=== PATIENT | female | born 1965 ===

== ENCOUNTER → 2019-07-18 | Outpatient (CLI) | payer OTHER ==
[2019-07-18 13:58] VITALS: BP 149/81; PULSE 84; RESP 16
--- NOTE | 2019-07-20 14:43 | P.PAINCN ---
History of Present Illness - Reason for Consult Consult date: 07/18/19 - History of Present Illness This is a 54-year-old patient referred by Dr. Victor with a chief complaint of chronic pain in right low back with radiation to right lateral thigh and lateral calf as well as bottom of right foot. This pain began in 2010 following an injury at a wellness center, the patient was attempting a new back exercise machine. The following day she woke up with excruciating back pain. Her back pain accounts for 80% of pain complaint, leg pain accounting for 20% of pain. Pain is rated as 6/10 today. She does endorse numbness and tingling in right lateral calf, as well as bilateral feet, which she attributes to diabetic neuropathy. She denies any current motor deficits, however on initial injury she states that she had foot drop which has improved with physical therapy. She has been evaluated by several specialists, she was following with a [facility] at [facility], and underwent 6 epidural steroid injections as well as a spinal cord stimulator implantation in February 2018, this was subsequently removed in April 2019 due to ineffectiveness. She is also been to physical therapy in the past, and continues to do daily exercises. She was most recently evaluated by Dr. Victor, neurosurgery and referred to our clinic for right-sided L5-S1 facet block. His note indicates that she may benefit from a right-sided L5-S1 facetectomy. Patient denies new-onset weakness, bowel/bladder incontinence, or any other signs or symptoms of cauda equina syndrome. There are no signs of acute intoxication, and no indications of medication diversion or overuse. Patient has not had surgery. Patient has had injections previously. Patient has had physical therapy recently. In addition to above, 13-point review of systems is also negative for chest pain, shortness of breath, changes in vision, changes in hearing, new onset weakness, abdominal pain, diarrhea, extreme fatigue, malaise, fever, skin changes, homicidal or suicidal ideation, or bowel or bladder incontinence. She does endorse night sweats and occasional palpitations. Physical exam: Vital Signs: Reviewed in EMR GENERAL: Well appearing, in no acute distress PSYCH: Mood and affect is appropriate. Awake, alert, and oriented SKIN: Skin color, texture, turgor normal, no rashes or lesions HEENT: Normocephalic, atraumatic. EOM intact CV: No pedal edema RESP: Respirations are unlabored, no audible wheezing GI: Abdomen non-distended MUSCULOSKELETAL: Bilateral lower extremity strength is normal and symmetric, except for right EHLslightly weaker than left side. No atrophy or tone a bnormalities are noted. Lumbar spine: Straight leg raising in the sitting position is negative for radicular pain. Tenderness to palpation over the lumbar spine and paraspinous muscles, more on the right. Positive for pain with facet loading and back extension/rotation, on the right side. Buttocks: No pain to palpation over the PSIS, Trevor test is negative Extremities: Peripheral joint ROM is full and pain free without obvious instability or laxity in all four extremities. No edema or skin discolorations noted. Gait: Gait is normal NEUR: Bilateral lower extremity coordination and muscle stretch reflexes are physiologic and symmetric. Negative clonus. Reduced sensation to light touch in right lateral calf and bilateral feet. Cranial nerves are grossly intact. Imaging: MRI lumbar spine done at [facility] on 05/17/2019 shows right paracentral disc bulging with close approximation to right exiting S1 nerve root with sclerotic facets at this level Bilateral lower extremity EMG done on 06/07/2019 shows low-grade right L5 nerve root irritation and mild distal sensory neuropathy Assessment: 1. Lumbar degenerative disc disease 2. Lumbar radiculopathy 3. Lumbar spondylosis Plan: 1. Explanation: Diagnoses, prognoses, and multiple treatment options including but not limited to physical therapy, interventional therapies, medication management and surgery were discussed with the patient and all questions were answered to the patient's satisfaction. 2. Investigations: Imaging reviewed 3. Counseling: The patient was counseled on the importance of continued EXERC ISE. 4. Procedures: As requested by Dr. Victor, we will schedule right L5-S1 intra- articular facet steroid injection 5. Consultations: None 6. Medications: No changes 7. Disposition: For above-mentioned procedure Past Medical History Past Medical History: Asthma, Diabetes Mellitus, Hyperlipidemia, Musculoskeletal Disorder, Osteoarthritis (OA), Thyroid Disorder Additional Past Medical History / Comment(s): injury to back 2010-injury to L4 & L5-originally developed dropfoot but did resolve History of Any Multi-Drug Resistant Organisms: None Reported Past Surgical History: Bladder Surgery, Section, Cholecystectomy, Orthopedic Surgery Additional Past Surgical History / Comment(s): bladder suspension, arthroscopy left knee, epidural pain procedures 2010 & 2014, spinal stimulator in back & then removed 2018 Past Anesthesia/Blood Transfusion Reactions: Previous Problems w/ Anesthesia Additional Past Anesthesia/Blood Transfusion Reaction / Comm: spinal headache in past after a surg. Smoking Status: Never smoker Medications and Allergies Home Medications Medication Instructions Recorded Confirmed Type Atorvastatin [Lipitor] 10 mg PO DAILY 07/14/19 07/14/19 History Docusate [Colace] 100 mg PO DAILY 07/14/19 07/14/19 History Fexofenadine HCl [Tory Allergy] 180 mg PO DAILY 07/14/19 07/14/19 History Gabapentin [Neurontin] 1,200 mg PO BID 07/14/19 07/14/19 History Glimepiride [Amaryl] 4 mg PO BID 07/14/19 07/14/19 History Glucosam/Anthony-Msm1/C/Pan/Bosw 2 each PO DAILY 07/14/19 07/14/19 History [Glucosamine-Chondroitin Tablet] Ibuprofen [Motrin] 800 mg PO TID 07/14/19 07/14/19 History Insulin Glargine [Lantus] 35 unit SQ HS 07/14/19 07/14/19 History Insulin Glargine [Lantus] 45 unit SQ QAM 07/14/19 07/14/19 History Levothyroxine Sodium [Levoxyl] 175 mcg PO DAILY 07/14/19 07/14/19 History Lisinopril [Zestril] 5 mg PO DAILY 07/14/19 07/14/19 History Montelukast [Singulair] 10 mg PO DAILY 07/14/19 07/14/19 History metFORMIN HCL [Glucophage] 1,000 mg PO BID 07/14/19 07/14/19 History traMADol HCL [Ultram] 100 mg PO TID 07/14/19 07/14/19 History Allergies Allergy/AdvReac Type Severity Reaction Status Date / Time amoxicillin Allergy Rash/Hives Verified 07/14/19 11:25 PQRS Measure Charge Sheet Measure #130: Documentation of Current Meds in Medical Chart: Patient's medications documented in chart Measure #226: Tobacco Use: Screen & Cessation Intervention: Pt not a tobacco user Measure #111: Pneumonia Vaccination: Pneumococcal vaccine NOT administered or previously given Measure #47: Advance Care Plan: Advance care planning discussed & documented, pt chose/unable to give Measure #412: Opioid Treatment Agreement: No documentation of signed opioid treatment agreement Measure #408: Opioid Therapy Follow-up Evaluation: Patient had NO f/u eval minimum every 3 months during opioid therapy Measure #317: Preventitive Care & Scrn High Bld Press & F/U: Pre-hypertensive or hypertensive BP documented, pt will f/u with PCP Measure #128: Body Mass Index (BMI) Screening & Follow-up: BMI documented ABOVE normal parameters - f/u documented Measure #131: Pain Assessment & Follow-up: Pain positive & plan documented, Follow-up scheduled Measure #431: Unhealthy Alcohol Use Preventative Care & Scrn: Patient not identified as an unhealthy alcohol user PQRS Narrative: Smoking Status Never smoker Pain Intensity [Right Lower 6 Back] Scale Used Numeric (1 - 10) Hx Alcohol Use (MH) No Home Medications: Ambulatory Orders Atorvastatin [Lipitor] 10 mg PO DAILY 07/14/19 Docusate [Colace] 100 mg PO DAILY 07/14/19 Fexofenadine HCl [Tory Allergy] 180 mg PO DAILY 07/14/19 Gabapentin [Neurontin] 1,200 mg PO BID 07/14/19 Glimepiride [Amaryl] 4 mg PO BID 07/14/19 Glucosam/Anthoyn-Msm1/C/Pan/Bosw [Glucosamine-Chondroitin Tablet] 2 each PO DAILY 07/14/19 Ibuprofen [Motrin] 800 mg PO TID 07/14/19 Insulin Glargine [Lantus] 35 unit SQ HS 07/14/19 Insulin Glargine [Lantus] 45 unit SQ QAM 07/14/19 Levothyroxine Sodium [Levoxyl] 175 mcg PO DAILY 07/14/19 Lisinopril [Zestril] 5 mg PO DAILY 07/14/19 Montelukast [Singulair] 10 mg PO DAILY 07/14/19 metFORMIN HCL [Glucophage] 1,000 mg PO BID 07/14/19 traMADol HCL [Ultram] 100 mg PO TID 07/14/19
== END | disposition home or self-care (01) ==
LOC: PNWHC3 12:55
PROVIDERS: ATTEND Anesthesiology
DX: M51.16 Intervertebral disc disorders with radiculopathy, lumbar region (principal); M47.26 Other spondylosis with radiculopathy, lumbar region; J45.909 Unspecified asthma, uncomplicated; E11.9 Type 2 diabetes mellitus without complications; E78.5 Hyperlipidemia, unspecified; M19.90 Unspecified osteoarthritis, unspecified site; Z79.1 Long term (current) use of non-steroidal anti-inflammatories (NSAID); Z79.4 Long term (current) use of insulin; Z79.890 Hormone replacement therapy; Z79.891 Long term (current) use of opiate analgesic; Z79.899 Other long term (current) drug therapy
CPT/HCPCS: 99201

== ENCOUNTER 2019-09-06 06:08 | Day surgery (SDC) | payer OTHER ==
[2019-09-02 17:29] VITALS: BMI 34.0
[2019-09-06] MEDS ORDERED: LACTATED RINGERS 1,000 ML IV ONE (06:38)
[2019-09-06 06:43] LABS: Glucose,Whole Blood 220 mg/dL (75-99)
[2019-09-06 06:46] VITALS: TEMP 98.3
[2019-09-06] MEDS ORDERED: INSULIN ASPART (NovoLOG) 100 UNIT/ML VIAL SQ ONE (07:11)
[2019-09-06] MEDS ORDERED: IOPAMIDOL M200 10 ML VIAL ONE (07:13)
[2019-09-06] MEDS ORDERED: BUPIVACAINE (PF) 0.5% 30 ML VIAL ONE (07:13)
[2019-09-06] MEDS ORDERED: TRIAMCINOLONE ACETONIDE 40 MG/ML 1 ML VIAL ONE (07:13)
[2019-09-06] MEDS ORDERED: MIDAZOLAM 2 MG/2 ML VIAL ONE (07:13)
[2019-09-06] MEDS ORDERED: fentaNYL (PF) 50 MCG/ML 2 ML AMP ONE (07:13)
--- NOTE | 2019-09-06 07:32 | P.PCN ---
Date of Procedure: 09/06/19 Preoperative Diagnosis: Lumbar spondylosis without myelopathy Postoperative Diagnosis: Lumbar spondylosis without myelopathy Procedure(s) Performed: Intra-articular injection of steroids in the L5-S1 facet joint on the right side under fluoroscopic guidance Anesthesia: MAC (Moderate IV conscious sedation with fentanyl and Versed) Surgeon: Rosalina Trejo Pathology: none sent Condition: stable Disposition: PACU Description of Procedure: The patient was seen in the preoperative holding area. The patient had a similar procedure few weeks ago which gave her more than 50% of pain relief which started about 8 hours after getting the procedure done. The patient assumed the prone position and the procedure room after applying ASA monitors. IV sedation with 1 mg of Versed and 50 g of fentanyl was provided. With fluoroscopy the L5-S1 facet joint was identified and the C-arm was manipulated to open up the facet joint line. After that the skin was localized with lidocaine 1% and then 22-gauge 3-1/2 inch Quincke spinal needle was used to go through the skin and into the L5-S1 facet joint. 0.2 MLS of Isovue were injected which showed spread inside the joint. After that I injected 20 mg of Kenalog with 0.5 ml of Marcaine 0.5 %. Patient tolerated procedure well.
[2019-09-06] MEDS ORDERED: IV FLUID CONTINUATION 1,000 ML IV ONE (07:36)
[2019-09-06 07:40] VITALS: RESP 18
[2019-09-06 07:40] LABS: Glucose,Whole Blood 200 mg/dL (75-99)
[2019-09-06 07:52] VITALS: BP 137/88; PULSE 87
--- NOTE | 2019-09-06 08:15 | FL ---
Fluoroscopy HISTORY: Pain 47 seconds fluoroscopy time supplied to the referring clinician. 2 intraoperative C-arm images docum ent the procedure. See dictated report from anesthesia.
== END 2019-09-06 08:07 | disposition home or self-care (01) ==
LOC: ORPAIN 06:08
PROVIDERS: ATTEND Anesthesiology
DX: M47.816 Spondylosis without myelopathy or radiculopathy, lumbar region (principal); E11.9 Type 2 diabetes mellitus without complications; Z88.0 Allergy status to penicillin; Z79.4 Long term (current) use of insulin
CPT/HCPCS: 81025; 64493; J2250; J3301; J3010; Q9966; 99152

== ENCOUNTER → 2019-09-20 | Outpatient (CLI) | payer OTHER ==
[2019-09-20 14:10] VITALS: BP 143/79; PULSE 82; RESP 18
--- NOTE | 2019-09-20 14:27 | P.PN ---
Progress Note - Text Progress Note Date: 09/20/19 This is a follow-up visit for this 54 years old female with a chronic history of severe low back pain she is taking this with lumbar degenerative disc disease and lumbar spondylosis with lumbar facet arthropathy, status post right side facet joint injection at the L5-S1, patient here today to discuss the results of the injection, patient reported that before the first injection her pain level was 9/10 dropped to 3/10 for daily, and she got similar result after the second injection, patient denies any motor or sensory deficit she denies any fever or night sweats, for this reason patient will be good candidate to have RFA of the right side medial branch at L4, L5 JING - PQRS measures = - Patient's medications are documented in the chart. -Tobacco use is negative and counseling.Given. -Patient's has not received pneumococcal vaccine. -Advanced care planning discussed, patient not eligible. -Opiate contract not signed. -Pain positive and follow-up visit/procedure is scheduled. -Patient's blood pressure measured [ 143/79 ] , and documented in the record ,and patient will follow up with the primary care. -Patient's weight was measured and body mass index [33] above the,within the normal limits and counseling was done. and patient instructed to follow- up with the primary care physician. -Patient was not identified as an unhealthy alcohol user
== END | disposition home or self-care (01) ==
LOC: PNWHC3 13:47
PROVIDERS: ATTEND Specialist
DX: G89.29 Other chronic pain (principal); M51.36 Other intervertebral disc degeneration, lumbar region; M47.816 Spondylosis without myelopathy or radiculopathy, lumbar region
CPT/HCPCS: 99211

== ENCOUNTER → 2019-12-06 | Outpatient (CLI) | payer OTHER | END | disposition home or self-care (01) | LOC: LABWHC1 14:29 | PROVIDERS: ATTEND Neurological Surgery | DX: Z11.59 Encounter for screening for other viral diseases (principal) | CPT/HCPCS: 87635 ==

== ENCOUNTER 2019-12-08 08:09 | Day surgery (SDC) | payer OTHER ==
[2019-12-06 16:22] VITALS: BMI 33.4
[~2019-12-08 08:09] MED LIST: LACTATED RINGERS 1,000 ML IV SCH
[2019-12-08 08:30] VITALS: TEMP 97.3
[2019-12-08] MEDS ORDERED: LIDOCAINE 1% (10MG/ML) FOR IV START INTRADERMA ONE (08:31)
[2019-12-08 08:32] LABS: Glucose,Whole Blood 135 mg/dL (75-99)
[2019-12-08] MEDS ORDERED: LIDOCAINE 4% (PF) 5 ML AMP ONE (09:00)
[2019-12-08] MEDS ORDERED: fentaNYL (PF) 50 MCG/ML 2 ML AMP ONE (09:00)
[2019-12-08] MEDS ORDERED: MIDAZOLAM 2 MG/2 ML VIAL ONE (09:00)
[2019-12-08 09:45] VITALS: BP 121/76
[2019-12-08 09:57] VITALS: PULSE 78; RESP 20
--- NOTE | 2019-12-08 10:15 | P.PCN ---
Date of Procedure: 12/08/19 Procedure(s) Performed: PREOPERATIVE DIAGNOSIS: Lumbar Spondylosis POSTOPERATIVE DIAGNOSIS: Same PROCEDURES: Radiofrequency ablation of the L4, L5 medial branches for facets L5-S1 with fluoroscopic guidance on the right side SURGEON: Srinath Casas MD. ANESTHESIA: Lidocaine 1% 5 mL, Moderate sedation with intravenous Versed and fentanyl, sedation time 18 mins EBL: Minimal Fluoroscopy was used for the procedure and images were saved in the radiology portion of the chart. PROCEDURE INDICATION: The patient with low back pain secondary to lumbar facet arthropathy who had more than 50% relief of pain with previous diagnostic lumbar medial branch block X2. PROCEDURE DESCRIPTION / TECHNIQUE: The patient was seen and identified in the preoperative area. Risks, benefits, complications, including but not limited to risk of infection ,bleeding , allergic reactions to the medications and incom plete pain relief , and alternatives were discussed with the patient, the patient agreed to proceed with the procedure and signed the consent. IV was started. The operative site was marked. Patient was taken to the OR and time out was completed. The patient was placed in the prone position on the procedure table. The lumbar area was prepped and draped in the usual sterile fashion. . Vital signs were closely monitored during the procedure .IV sedation was used during the procedure to decrease patients anxiety. Using AP and then oblique fluoroscopy, the "eye of the Mohit dog" corresponding to the connection between the superior and transverse articular processes of the L5 as well as the sacral ala were identified, marked, and localized with 1% lidocaine. Subsequently, an 18 guage 150 MM radiofrequency cannula with a 10-mm active tip was advanced guided by fluoroscopy to the identified target at each site. Needle positioning was confirmed on AP, oblique and lateral fluoroscopy. Motor testing at 2.5 Hz was done with paraspinal muscle stimulation only, and no radicular symptoms down the legs. Then 1 mL of 4% lidocaine was injected in each site. Radiofrequency thermocoagulation at 80 degrees celsius for 90 seconds was then performed. [place] were removed. Sterile dressings were applied. COMPLICATIONS: No acute complications. DISPOSITION / PLANS: The patient was placed in a supine position and transferred to the recovery area in a stable condition for observation and was discharged from the recovery room after meeting discharge criteria. Home discharge instructions given to the patient by the staff. The patient will follow up in clinic in 4 weeks.
--- NOTE | 2019-12-08 10:20 | FL ---
EXAMINATION TYPE: FL guided pain mgmt statistic DATE OF EXAM: 12/08/2019 FLUOROSCOPY Fluoroscopy time of 12 seconds was used during lumbar radiofrequency ablation. 7 image/s document/s the procedure.
== END 2019-12-08 10:13 | disposition home or self-care (01) ==
LOC: ORPAIN 08:09
PROVIDERS: ATTEND Anesthesiology
DX: M47.816 Spondylosis without myelopathy or radiculopathy, lumbar region (principal)
CPT/HCPCS: 81025; 64635; J2001; J2250; J3010; 99152

== ENCOUNTER → 2020-01-11 | Outpatient (CLI) | payer OTHER ==
[2020-01-11 09:21] VITALS: BP 148/71; PULSE 99; RESP 18; TEMP 98.2
--- NOTE | 2020-01-11 09:50 | P.PAINPG ---
Subjective Progress Note Date: 01/11/20 This is a 54-year-old patient who returns to clinic after undergoing right lumbar radiofrequency ablation for facet L5-S1. She reports about 50% pain relief from this procedure. Immediately following the procedure, she had excellent relief, however over the last 10 days or so her pain has started to return, although it does not reach the levels that it was prior to the procedure. She states that initially her pain was rated at 3-10/10, now it is 3-7/10. Unfortunately, she has not been able to wean her medications and was hoping for more relief from the procedure. Today, her pain is located in the right lower back, also in the bilateral hips. She has been told that she has bursitis. Pain is described as sharp, no aggravating or relieving factors. She continues to do low back exercises and uses an elliptical. Her pain medications include Motrin, Neurontin, Effexor, tramadol. In terms of her history, she was referred by Dr. Victor with a chief complaint of chronic pain in right low back with radiation to right lateral thigh and lateral calf as well as bottom of right foot. This pain began in 2010 following an injury at a wellness center, the patient was attempting a new back exercise machine. The following day she woke up with excruciating back pain. Her back pain accounts for 80% of pain complaint, leg pain accounting for 20% of pain. Pain is rated as 6/10 today. She does endorse numbness and tingling in right lateral calf, as well as bilateral feet, which she attributes to diabetic neuropathy. She denies any current motor deficits, however on initial injury she states that she had foot drop which has improved with physical therapy. She has been evaluated by several specialists, she was following with a pain [facility]Dr. Freeman at [facility], and underwent 6 epidural steroid injections as well as a spinal cord stimulator implantation in February 2018, this was subsequently removed in April 2019 due to ineffectiveness. She is also been to physical therapy in the past, and continues to do daily exercises. She was most recently evaluated by Dr. Victor, neurosurgery and referred to our clinic for right-sided L5-S1 facet block. His note indicates that she may benefit from a right-sided L5-S1 facetectomy. Patient denies new-onset weakness, bowel/bladder incontinence, or any other signs or symptoms of cauda equina syndrome. There are no signs of acute intoxication, and no indications of medication diversion or overuse. In addition to above, 13-point review of systems is also negative for chest pain, shortness of breath, changes in vision, changes in hearing, new onset weakness, abdominal pain, diarrhea, extreme fatigue, malaise, fever, skin changes, homicidal or suicidal ideation, or bowel or bladder incontinence. She does endorse night sweats and occasional palpitations. Physical exam: Vital Signs: Reviewed in EMR GENERAL: Well appearing, in no acute distress PSYCH: Mood and affect is appropriate. Awake, alert, and oriented SKIN: Skin color, texture, turgor normal, no rashes or lesions HEENT: Normocephalic, atraumatic. EOM intact CV: No pedal edema RESP: Respirations are unlabored, no audible wheezing GI: Abdomen non-distended MUSCULOSKELETAL: Bilateral lower extremity strength is normal and symmetric, No atrophy or tone abnormalities are noted. Lumbar spine: Straight leg raising in the sitting position is negative for radicular pain. Tenderness to palpation over the lumbar spine and paraspinous muscles, more on the right. Positive for pain with facet loading and back extension/rotation, on the right side. Buttocks: No pain to palpation over the PSIS. Tenderness to palpation over bilateral greater trochanters Extremities: Peripheral joint ROM is full and pain free without obvious instability or laxity in all four extremities. No edema or skin discolorations noted. Gait: Gait is normal NEUR: Bilateral lower extremity coordination and muscle stretch reflexes are physiologic and symmetric. Negative clonus. Cranial nerves are grossly intact. Imaging: MRI lumbar spine done at [facility] on 05/17/2019 shows right paracentral disc bulging with close approximation to right exiting S1 nerve root with sclerotic facets at this level Bilateral lower extremity EMG done on 06/07/2019 shows low-grade right L5 nerve root irritation and mild distal sensory neuropathy Assessment: 1. Lumbar degenerative disc disease 2. Lumbar radiculopathy 3. Lumbar spondylosis 4. Bilateral greater trochanter bursitis. 5. Lumbar myofascial pain syndrome Plan: 1. Explanation: Diagnoses, prognoses, and multiple treatment options including but not limited to physical therapy, interventional therapies, medication management and surgery were discussed with the patient and all questions were answered to the patient's satisfaction. We did discuss returning to Dr. Victor for surgical evaluation, however the patient would like to have below interventions done prior to meeting with him. 2. Investigations: No new imaging 3. Counseling: The patient was counseled on the importance of continued EXERCISE. 4. Procedures: Will schedule bilateral greater trochanter bursa injections and right sided lumbar paraspinal muscle trigger point injection 5. Consultations: Physical therapy prescription was given for hip exercises for bursitis 6. Medications: Will prescribe Flexeril 10 mg twice a day when necessary for muscle spasms 7. Disposition: For above-mentioned procedure Objective - Vital Signs Vital signs: Intake & Output 01/09/20 01/10/20 01/10/20 18:59 06:59 18:59 Weight 102.058 kg PQRS Measure Charge Sheet Measure #130: Documentation of Current Meds in Medical Chart: Patient's medications documented in chart Measure #226: Tobacco Use: Screen & Cessation Intervention: Pt not a tobacco user Measure #111: Pneumonia Vaccination: Pneumococcal vaccine NOT administered or previously given Measure #47: Advance Care Plan: Advance care planning discussed & documented, pt chose/unable to give Measure #412: Opioid Treatment Agreement: No documentation of signed opioid treatment agreement Measure #408: Opioid Therapy Follow-up Evaluation: Patient had NO f/u eval minimum every 3 months during opioid therapy Measure #317: Preventitive Care & Scrn High Bld Press & F/U: Normal blood pressure, f/u not required Measure #128: Body Mass Index (BMI) Screening & Follow-up: BMI documented ABOVE normal parameters - f/u documented Measure #131: Pain Assessment & Follow-up: Pain positive & plan documented, Follow-up scheduled Measure #431: Unhealthy Alcohol Use Preventative Care & Scrn: Patient not identified as an unhealthy alcohol user PQRS Narrative: Smoking Status Never smoker Pain Intensity [Lower Back] 4 Scale Used Numeric (1 - 10) Hx Alcohol Use (MH) No Home Medications: Ambulatory Orders Atorvastatin [Lipitor] 10 mg PO DAILY 07/14/19 Docusate [Colace] 100 mg PO DAILY 07/14/19 Fexofenadine HCl [Tory Allergy] 180 mg PO DAILY 07/14/19 Gabapentin [Neurontin] 1,200 mg PO BID 07/14/19 Glimepiride [Amaryl] 4 mg PO BID 07/14/19 Glucosam/Anthony-Msm1/C/Pan/Bosw [Glucosamine-Chondroitin Tablet] 2 each PO DAILY 07/14/19 Ibuprofen [Motrin] 800 mg PO TID 07/14/19 Insulin Glargine [Lantus] 40 unit SQ HS 07/14/19 Insulin Glargine [Lantus] 50 unit SQ QAM 07/14/19 Levothyroxine Sodium [Levoxyl] 175 mcg PO DAILY 07/14/19 Lisinopril [Zestril] 5 mg PO DAILY 07/14/19 Montelukast [Singulair] 10 mg PO HS 07/14/19 metFORMIN HCL [Glucophage] 1,000 mg PO BID 07/14/19 traMADol HCL [Ultram] 50 mg PO TID 07/14/19 Venlafaxine HCl ER [Effexor Xr] 37.5 mg PO HS 09/20/19 Mv-Min/Vit C/Glut/Lysine/Hc124 [Airborne Tablet Chewable] 2 each PO BID 12/06/19 Albuterol Sulfate [Ventolin HFA] 1 - 2 puff INHALATION Q6H PRN 01/10/20 Venlafaxine HCl ER [Effexor XR] 37.5 mg PO DAILY 01/11/20 Controlled Substance Measures - Controlled Substance Measures Is patient prescribed a controlled substance at discharge?: No
== END | disposition home or self-care (01) ==
LOC: PNWHC3 09:01
PROVIDERS: ATTEND Anesthesiology
DX: M51.16 Intervertebral disc disorders with radiculopathy, lumbar region (principal); M47.26 Other spondylosis with radiculopathy, lumbar region; M70.62 Trochanteric bursitis, left hip; M70.61 Trochanteric bursitis, right hip; M79.18 Myalgia, other site; Z79.891 Long term (current) use of opiate analgesic; Z79.899 Other long term (current) drug therapy; Z79.890 Hormone replacement therapy; Z79.84 Long term (current) use of oral hypoglycemic drugs
CPT/HCPCS: 99211

== ENCOUNTER 2020-01-24 06:30 | Day surgery (SDC) | payer OTHER ==
[2020-01-23 09:51] VITALS: BMI 34.2
[2020-01-24] MEDS ORDERED: LIDOCAINE 1% (10MG/ML) FOR IV START INTRADERMA ONE (07:05)
[2020-01-24 07:10] VITALS: TEMP 98.5
[2020-01-24] MEDS ORDERED: ROPIVACAINE 5MG/ML 20ML VIAL ONE (07:13)
[2020-01-24] MEDS ORDERED: MIDAZOLAM 2 MG/2 ML VIAL ONE (07:13)
[2020-01-24] MEDS ORDERED: fentaNYL (PF) 50 MCG/ML 2 ML AMP ONE (07:13)
[2020-01-24] MEDS ORDERED: methylPREDNISolone ACETATE 40 MG/ML 1 ML VIAL ONE (07:13)
[2020-01-24 07:16] LABS: Glucose,Whole Blood 167 mg/dL (75-99)
--- NOTE | 2020-01-24 07:26 | P.PCN ---
Date of Procedure: 01/24/20 Procedure(s) Performed: Pre OP diagnoses=1- bilateral trochanteric bursitis . 2-myofascial pain syndrome lumbar paraspinal muscles. 3-lumbar spondylosis with lumbar facet arthropathy without myelopathy. 4-lumbar degenerative disc disease. Postoperative diagnosis= same as preop diagnosis. Operation=1- bilateral trochanteric bursa steroid injection under fluoroscopy guidance.(The fluoroscopy images on file in Radiology department ). 2-trigger point injection right side lumbar paraspinal muscles ( 2 trigger pointes Right paraspinal muscles ) Anesthesia= moderate sedation with IV , Versed 2 mg , and fentanyl 50 micrograms and local infiltration with lidocaine 1% 2 mL . Complications= none . Description of the procedure= patient had history of severe low back pain and hip pain secondary to trochanteric bursitis for this reason patient was a good candidate to have bilateral trochanteric bursa steroid injection which hopefully it will help his pain, risks and benefits of the procedure including but not limited to risk of infection and bleeding and not complete pain relief and ALLERGIC reaction to medication discussed with the patient and the alternative also discussed with the patient and he agreed with the preceding taken to the operating room placed in prone position or standard monitors applied patient and after induction of anesthesia the back and the hip area prepped with chlorhexidine 3 times, and under sterile technique using 25-gauge needle for skin and subcutaneous tissue infiltration was first admitted the right trochanteric bursa injection at 25-gauge Quincke-type spinal needle advanced slowly under fluoroscopy and placed in the right trochanteric bursa needle placement confirmed with AP and lateral view and after appropriate needle placement confirmed under fluoroscopy 5 ML of Ropivacaine 0.5% mixed with 20 mg of Depo-Medrol injected after negative aspiration for heme and there was no CSF and there was no paresthesia during the injection and needle removed and a dressing applied and the same procedure repeated at the left side, patient tolerated the procedure well without any complication . In the trigger point injections in the right side lumbar paraspinal muscles done under sterile technique using 25-gauge needle, each of the trigger point injected with ropivacaine 0.5% 2 mL, injection done after negative aspiration and there was no paresthesia during the injection, patient tolerated the procedure well without any competition and she will follow up in the pain clinic in a few weeks
[2020-01-24] MEDS ORDERED: IV FLUID CONTINUATION 1,000 ML IV ONE ×2 (07:29)
[2020-01-24 07:49] VITALS: BP 119/65; PULSE 79; RESP 20
--- NOTE | 2020-01-24 09:07 | FL ---
Fluoroscopy HISTORY: Pain 4 seconds fluoroscopy time supplied to the referring clinician. 2 intraoperative C-arm images docume nt the procedure. See dictated report from anesthesia.
== END 2020-01-24 07:56 | disposition home or self-care (01) ==
LOC: ORPAIN 06:30
PROVIDERS: ATTEND Specialist
DX: M70.62 Trochanteric bursitis, left hip (principal); M70.61 Trochanteric bursitis, right hip; M79.18 Myalgia, other site; M51.36 Other intervertebral disc degeneration, lumbar region; M47.816 Spondylosis without myelopathy or radiculopathy, lumbar region; Z88.0 Allergy status to penicillin; E11.9 Type 2 diabetes mellitus without complications
CPT/HCPCS: 81025; 20553; 20610; J2250; J1030; J3010; J2795

== ENCOUNTER → 2020-02-14 | Outpatient (CLI) | payer OTHER ==
[2020-02-14 14:31] VITALS: BP 136/64; PULSE 90; RESP 18; TEMP 98.1
--- NOTE | 2020-02-14 14:50 | P.PAINPG ---
Subjective Progress Note Date: 02/14/20 This is a 54-year-old patient who returns to clinic after undergoing b/l GT bursa injections and lumbar parapsinal trigger point injections on 01/23. In the past she has also had L5-S1 RFA with 50% relief from that procedure on 12/07. Today her pain is a 5/10. Located in the right low back (goes down the right leg) and bilateral hips. The GT bursa injections and TP's did not help her pain at all. Pain is described as sharp, no aggravating or relieving factors. She continues to do low back exercises and uses an elliptical. Her pain medications include Motrin, Neurontin, Effexor, tramadol. She's currently doing PT for her hip which she says is helping. Overall her pain is still a 7/10 and she is likely going to see Dr. Victor to discuss surgical options. She did not take Flexeril as we prescribed as she was told from the pharmacist that flexeril and tramadol can have interactions together including stroke and worsening drowsiness and would like another muscle relaxant. In terms of her history, she was referred by Dr. Victor with a chief complaint of chronic pain in right low back with radiation to right lateral thigh and lateral calf as well as bottom of right foot. This pain began in 2010 following an injury at a wellness center, the patient was attempting a new back exercise machine. The following day she woke up with excruciating back pain. Her back pain accounts for 80% of pain complaint, leg pain accounting for 20% of pain. Pain is rated as 6/10 today. She does endorse numbness and tingling in right lateral calf, as well as bilateral feet, which she attributes to diabetic neuropathy. She denies any current motor deficits, however on initial injury she states that she had foot drop which has improved with physical therapy. She has been evaluated by several specialists, she was following with [facility], and underwent 6 epidural steroid injections as well as a spinal cord stimulator implantation in February 2018, this was subsequently removed in April 2019 due to ineffectiveness. She is also been to physical therapy in the past, and continues to do daily exercises. She was most recently evaluated by Dr. Victor, neurosurgery and referred to our clinic for right-sided L5-S1 facet block and we had subsequently performed RFA. His note indicates that she may benefit from a right-sided L5-S1 facetectomy. Patient denies new-onset weakness, bowel/bladder incontinence, or any other signs or symptoms of cauda equina syndrome. There are no signs of acute intoxication, and no indications of medication diversion or overuse. In addition to above, 13-point review of systems is also negative for chest pain, shortness of breath, changes in vision, changes in hearing, new onset weakness, abdominal pain, diarrhea, extreme fatigue, malaise, fever, skin changes, homicidal or suicidal ideation, or bowel or bladder incontinence. She does endorse night sweats and occasional palpitations. Physical exam: Vital Signs: Reviewed in EMR GENERAL: Well appearing, in no acute distress PSYCH: Mood and affect is appropriate. Awake, alert, and oriented SKIN: Skin color, texture, turgor normal, no rashes or lesions HEENT: Normocephalic, atraumatic. EOM intact CV: No pedal edema RESP: Respirations are unlabored, no audible wheezing GI: Abdomen non-distended MUSCULOSKELETAL: Bilateral lower extremity strength is normal and symmetric, No atrophy or tone abnormalities are noted. Lumbar spine: Straight leg raising in the sitting position is negative for radicular pain. Tenderness to palpation over the lumbar spine and paraspinous muscles, more on the right. Positive for pain with facet loading and back extension/rotation, on the right side. Buttocks: No pain to palpation over the PSIS. Tenderness to palpation over bilateral greater trochanters Extremities: Peripheral joint ROM is full and pain free without obvious instability or laxity in all four extremities. No edema or skin discolorations noted. Gait: Gait is normal NEUR: Bilateral lower extremity coordination and muscle stretch reflexes are physiologic and symmetric. Negative clonus. Cranial nerves are grossly intact. Imaging: MRI lumbar spine done at [facility] on 05/17/2019 shows right paracentral disc bulging with close approximation to right exiting S1 nerve root with sclerotic facets at this level Bilateral lower extremity EMG done on 06/07/2019 shows low-grade right L5 nerve root irritation and mild distal sensory neuropathy Assessment: 1. Lumbar degenerative disc disease 2. Lumbar radiculopathy 3. Lumbar spondylosis 4. Bilateral greater trochanter bursitis. 5. Lumbar myofascial pain syndrome Plan: 1. Explanation: Diagnoses, prognoses, and multiple treatment options including but not limited to physical therapy, interventional therapies, medication management and surgery were discussed with the patient and all questions were answered to the patient's satisfaction. We did discuss returning to Dr. Victor for surgical evaluation, however the patient would like to have below interventions done prior to meeting with him. 2. Investigations: No new imaging 3. Counseling: The patient was counseled on the importance of continued EXERCISE. 4. Procedures: None as they are not helping very much. 5. Consultations: None 6. Medications: Will prescribe Robaxin 750 mg Q6H in replacement of the flexeril we prescribed last time 7. Disposition: PRN, will call for followup if she has questions after seeing her surgeon. PQRS Measure Charge Sheet Measure #130: Documentation of Current Meds in Medical Chart: Patient's medications documented in chart Measure #226: Tobacco Use: Screen & Cessation Intervention: Pt not a tobacco user Measure #111: Pneumonia Vaccination: Pneumococcal vaccine NOT administered or previously given Measure #47: Advance Care Plan: Advance care planning discussed & documented, pt chose/unable to give Measure #412: Opioid Treatment Agreement: No documentation of signed opioid treatment agreement Measure #408: Opioid Therapy Follow-up Evaluation: Patient had NO f/u eval minimum every 3 months during opioid therapy Measure #317: Preventitive Care & Scrn High Bld Press & F/U: Normal blood pressure, f/u not required Measure #128: Body Mass Index (BMI) Screening & Follow-up: BMI documented ABOVE normal parameters - f/u documented Measure #131: Pain Assessment & Follow-up: Pain positive & plan documented, Follow-up scheduled Measure #431: Unhealthy Alcohol Use Preventative Care & Scrn: Patient not identified as an unhealthy alcohol user PQRS Narrative: Smoking Status Never smoker Pain Intensity [Lower Back] 4 Scale Used Numeric (1 - 10) Hx Alcohol Use (MH) No Controlled Substance Measures - Controlled Substance Measures Is patient prescribed a controlled substance at discharge?: No PQRS Measure Charge Sheet PQRS Narrative: Smoking Status Never smoker Pain Intensity [Lower Back] 5 Scale Used Numeric (1 - 10) Hx Alcohol Use (MH) No Home Medications: Ambulatory Orders Atorvastatin [Lipitor] 10 mg PO DAILY 07/14/19 Docusate [Colace] 100 mg PO DAILY 07/14/19 Fexofenadine HCl [Tory Allergy] 180 mg PO DAILY 07/14/19 Gabapentin [Neurontin] 1,200 mg PO BID 07/14/19 Glimepiride [Amaryl] 4 mg PO BID 07/14/19 Glucosam/Anthony-Msm1/C/Pan/Bosw [Glucosamine-Chondroitin Tablet] 2 each PO DAILY 07/14/19 Ibuprofen [Motrin] 800 mg PO TID 07/14/19 Insulin Glargine [Lantus] 40 unit SQ HS 07/14/19 Insulin Glargine [Lantus] 50 unit SQ QAM 07/14/19 Levothyroxine Sodium [Levoxyl] 175 mcg PO DAILY 07/14/19 Montelukast [Singulair] 10 mg PO HS 07/14/19 lisinopriL [Zestril] 5 mg PO DAILY 07/14/19 metFORMIN HCL [Glucophage] 1,000 mg PO BID 07/14/19 traMADol HCL [Ultram] 50 mg PO TID 07/14/19 Venlafaxine HCl ER [Effexor Xr] 37.5 mg PO HS 09/20/19 Mv-Min/Vit C/Glut/Lysine/Hc124 [Airborne Tablet Chewable] 2 each PO BID 12/06/19 Albuterol Sulfate [Ventolin HFA] 1 - 2 puff INHALATION Q6H PRN 01/10/20 Cyclobenzaprine [Flexeril] 10 mg PO BID PRN #60 tab 01/11/20 Controlled Substance Measures - Controlled Substance Measures Is patient prescribed a controlled substance at discharge?: No
== END | disposition home or self-care (01) ==
LOC: PNWHC3 14:01
PROVIDERS: ATTEND Anesthesiology
DX: M51.16 Intervertebral disc disorders with radiculopathy, lumbar region (principal); M47.26 Other spondylosis with radiculopathy, lumbar region; M79.18 Myalgia, other site; M70.62 Trochanteric bursitis, left hip; M70.61 Trochanteric bursitis, right hip; Z79.899 Other long term (current) drug therapy; Z79.891 Long term (current) use of opiate analgesic; Z79.890 Hormone replacement therapy; Z79.84 Long term (current) use of oral hypoglycemic drugs
CPT/HCPCS: 99211

== ENCOUNTER → 2023-12-17 | Outpatient (CLI) | payer OTHER ==
[2023-12-17 19:29] LABS: Estradiol 74.6 pg/mL
[2023-12-17 19:32] LABS: Follicle Stimulating Hormone 37.6 mIU/mL
== END | disposition home or self-care (01) ==
LOC: LABWHC1 11:53
PROVIDERS: ATTEND Obstetrics & Gynecology
DX: N95.1 Menopausal and female climacteric states (principal)
CPT/HCPCS: 36415; 82670; 83001; 84144; 84403

== ENCOUNTER → 2024-07-07 | Outpatient (CLI) | payer OTHER ==
[2024-07-07 14:16] VITALS: BP 128/71; PULSE 74; RESP 12; TEMP 97.8
--- NOTE | 2024-07-07 14:57 | P.SLEEP ---
History of Present Illness DATE: 05/07/2024 CONSULTATION/NEW PATIENT EVALUATION HISTORY OF PRESENT ILLNESS/SLEEP-WAKE EVALUATION: 59-year-old lady had been evaluated in the sleep center for obstructive sleep apnea hypopnea syndrome. In April 2024 patient had home sleep apnea test which showed apnea hypopnea index 5.8 with oxygen desaturation to 57%. SLEEP SCHEDULE: Usually sleep schedule from 7:30 PM to 3 AM on working days and until 4 AM on weekend. FALLING ASLEEP: Sometimes patient has difficulties with falling asleep. DURING SLEEP: Patient snores and wakes up from sleep several times with up to 2 episodes of nocturia. Positive history of grinding teeth, dry mouth, palpitations, episodes of gasping for air, restless leg symptoms, sweating no history of hypnogogical hallucinations, sleep paralysis, or cataplexy. DURING THE DAY/WAKE STATE: In the morning patient wake up tired, falling asleep during the day, has problems with memory, irritability, depression, anxiety, sexual dysfunction.. [place] sleepiness scale is increased to 10. Usually patient does not take naps. Patient drinks up to 3 cups of coffee during the day. PAST MEDICAL HISTORY: Diabetes mellitus, hypothyroidism, hyperlipidemia, back problems, recently erythrocytosis with hematocrit 47% and red blood cells 5.12. PAST SURGICAL HISTORY: Please see below. MEDICATIONS: Please see below. SOCIAL HISTORY: Please see below. FAMILY HISTORY: Asthma, bronchitis, cancer, restless legs. REVIEW OF SYSTEMS: Snoring, multiple awakenings from sleep, sleepiness during the day. No fevers. No double vision. No recent chest pain. No shortness of breath. No abdominal pain. No bleeding episodes. No blood in urine. No seizure episodes. PHYSICAL EXAMINATION: GENERAL: A pleasant patient without any distress. VITAL SIGNS: Please see below, weight 228 pounds, BMI 36.2. HEENT: PERRLA, EOMI. Evaluation of oropharynx showed tongue protrudes midline, low position of soft palate Mallampati 4. NECK: Supple. No JVD. Thyroid is not palpable. 15.5 inches in circumference. LUNGS: Clear to percussion and to auscultation. Good air exchange. No wheezing or rhonchi. HEART: S1, S2 regular. No murmurs, gallops or rubs. ABDOMEN: Soft and nontender. Bowel sounds are present. No organomegaly appreciated. EXTREMITIES: No clubbing or cyanosis. SOCIAL SCIENCE ANALYST: Awake, alert, and oriented x3. Cranial nerves 2 to 7 intact. There is no fasciculation or atrophy noted. No focal deficits observed. ASSESSMENT: 1. Snoring, multiple awakenings from sleep, extremely low position of soft palate Mallampati 4, sleepiness with [place] Sleepiness Scale 10, mild obstructive sleep apnea with apnea hypopnea index 5.8 by results of home sleep apnea test which was done in another institution. Obstructive sleep apnea hypopnea syndrome. 2. Erythrocytosis, hematocrit increased to 47. 3. Obesity, BMI 36.2. 4. Hypothyroidism. 5 hyperlipidemia. 6 . Back problems. PLAN: 1. Patient will be started on treatment with AutoPap and should use equipment every night for the whole night. 2. Follow-up visit in 1 to 3 months after patient will be started to use CPAP equipment to evaluate clinical response on treatment, compliance with treatment and make any necessary adjustments adjustments related to mask fitting pressure and humidification. 3. Preferable position during sleep on the side. 4. No driving if patient feels any sleepiness. Patient is aware of civil and criminal liability for unsafe driving. 5. Sleep hygiene with regular sleep time for at least 7.5-8 hours. 6. Watching and losing weight. Thank you very much for referring this patient for consultation. Sincerely, Zoltan Fiore MD, PhD, FAASM. Diplomat of [place] [employer], Sleep Medicine Board by [place] [employer] [place] [employer] Principal Clerk of [facility] [place] cc: Brett Genao, DO phone [phone], fax [phone] Past Medical History Past Medical History: Asthma, Diabetes Mellitus, Hyperlipidemia, Musculoskeletal Disorder, Osteoarthritis (OA), Thyroid Disorder Additional Past Medical History / Comment(s): injury to back 2010-injury to L4 & L5-originally developed dropfoot but did resolve, back surgery, lumbar ablation History of Any Multi-Drug Resistant Organisms: None Reported Past Surgical History: Bladder Surgery, Section, Cholecystectomy, Orthopedic Surgery Additional Past Surgical History / Comment(s): bladder suspension, gallstones removed, arthroscopy left knee, epidural pain procedures 2010 & 2014, spinal stimulator in back & then removed 2018. 08/11/19 Pain proc. Past Anesthesia/Blood Transfusion Reactions: Previous Problems w/ Anesthesia Additional Past Anesthesia/Blood Transfusion Reaction / Comment(s): spinal headache in past after a surg. Past Psychological History: No Psychological Hx Reported Smoking Status: Never smoker Past Alcohol Use History: None Reported Past Drug Use History: None Reported - Past Family History Father Family Medical History: Cancer Sister(s) Family Medical History: Cancer Medications and Allergies Home Medications Medication Instructions Recorded Confirmed Type Atorvastatin [Lipitor] 10 mg PO DAILY 07/14/19 02/07/20 History Docusate [Colace] 100 mg PO DAILY 07/14/19 02/07/20 History Fexofenadine HCl [Tory Allergy] 180 mg PO DAILY 07/14/19 02/07/20 History Gabapentin [Neurontin] 1,200 mg PO BID 07/14/19 02/07/20 History Glimepiride [Amaryl] 4 mg PO BID 07/14/19 02/07/20 History Glucosam/Anthony-Msm1/C/Pan/Bosw 2 each PO DAILY 07/14/19 02/07/20 History [Glucosamine-Chondroitin Tablet] Ibuprofen [Motrin] 800 mg PO TID 07/14/19 02/07/20 History Insulin Glargine [Lantus] 40 unit SQ HS 07/14/19 02/07/20 History Insulin Glargine [Lantus] 50 unit SQ QAM 07/14/19 02/07/20 History Levothyroxine Sodium [Levoxyl] 175 mcg PO DAILY 07/14/19 02/07/20 History Montelukast [Singulair] 10 mg PO HS 07/14/19 02/07/20 History lisinopriL [Zestril] 5 mg PO DAILY 07/14/19 02/07/20 History metFORMIN HCL [Glucophage] 1,000 mg PO BID 07/14/19 02/07/20 History traMADol HCL [Ultram] 50 mg PO TID 07/14/19 02/07/20 History Venlafaxine HCl ER [Effexor Xr] 37.5 mg PO HS 09/20/19 02/07/20 History Mv-Min/Vit C/Glut/Lysine/Hc124 2 each PO BID 12/06/19 02/07/20 History [Airborne Tablet Chewable] Albuterol Sulfate [Ventolin HFA] 1 - 2 puff INHALATION Q6H PRN 01/10/20 02/07/20 History Cyclobenzaprine [Flexeril] 10 mg PO BID PRN #60 tab 01/11/20 02/07/20 Rx methocarbamoL [Robaxin] 750 mg PO Q6H #120 tab 02/14/20 Rx Allergies Allergy/AdvReac Type Severity Reaction Status Date / Time amoxicillin Allergy Rash/Hives Verified 02/14/20 14:24 Physical Exam Vitals: Vital Signs Temp Pulse Resp BP Pulse Ox 07/07/24 14:15 97.8 F 74 12 128/71 99 Sleep Note - Sleep Data ESS Total: 10 - Sleep Note Sleep Note: Temperature: 97.8 F Pulse Rate: 74 Respiratory Rate: 12 Blood Pressure: 128/71 SpO2: 99 Height: Weight: BMI: Neck Circumference: 15.5
== END ==
LOC: 3 N SLEEP 13:20
PROVIDERS: ATTEND Internal Medicine
DX: G47.33 Obstructive sleep apnea (adult) (pediatric) (principal); G47.10 Hypersomnia, unspecified; D75.1 Secondary polycythemia; E66.9 Obesity, unspecified; E03.9 Hypothyroidism, unspecified; E78.5 Hyperlipidemia, unspecified; M53.9 Dorsopathy, unspecified; Z68.36 Body mass index [BMI] 36.0-36.9, adult; Z88.0 Allergy status to penicillin; Z79.890 Hormone replacement therapy
CPT/HCPCS: 99211

== ENCOUNTER → 2024-09-21 | Outpatient (CLI) | payer OTHER ==
[2024-09-21 16:41] VITALS: BP 121/75; PULSE 74; RESP 16; TEMP 98.1
--- NOTE | 2024-09-21 17:52 | P.PROGSL ---
Subjective DATE: 09/21/2024 FOLLOW UP VISIT. Patient with obstructive sleep apnea hypopnea syndrome return to sleep center for follow-up visit. Recently patient had sleep study which documented obstructive sleep apnea hypopnea syndrome. Patient was initiated on PAP therapy and today is first visit after treatment was started. Patient was able to use PAP equipment every night for the whole night. The patient does not have significant problems with the mask, PAP pressure and humidification. [place] sleepiness scale is increased to 14. I checked information from PAP unit. PAP unit pressure 5-13 cm H2O. Usage is 100% for more then 4 hours, average 7.2 hours per night. Leak is 7.3 l/m, which is in acceptable range. Apnea Hypopnea Index is 6.7, which is slightly increased. MEDICATIONS: Have been reviewed, please see below. During physical exam: GENERAL: A pleasant patient without any distress. VITAL SIGNS: Please see below, weight 228 pounds, BMI 36.2. HEENT: PERRLA, EOMI.low position of soft palate, Mallapati 4 . NECK: Supple. No JVD. LUNGS: Clear to percussion and to auscultation. Good air exchange. No wheezing or rhonchi. HEART: S1, S2 regular. ABDOMEN: Soft and nontender.[] EXTREMITIES: No clubbing or cyanosis. CUSTOMER SALES CONSULTANT: Awake, alert, and oriented x3. No focal deficit. Impressions: 1. Obstructive sleep apnea-hypopnea syndrome. Patient demonstrated great compliance with treatment, benefiting from treatment. 2. Obesity, BMI 36.2. 3. History of erythrocytosis with increased hematocrit. 4. Hypothyroidism. 5. Hyperlipidemia. 6. Back problems. I adjusted pressure in AutoPAP to the range 5-16 cm of water. I explained to the patient in details how to adjust temperature and heated humidifier and temperature in heated tube. Plan: 1. Continue using PAP equipment every night for the whole night. 2. To change air filter at least 1-2 times per month. 3. PAP unit should stay lower then position of the head. 4. Advised patient to remove all remaining water from humidifier canister daily and make it dry after each usage. Refill canister with fresh distilled water before each usage. 5. Sleep hygiene with regular time in bed for at least 8 hours. 6. Precautions related to driving. No driving if feel any sleepiness. 7. I will maintain prescription for PAP supplies including mask, tube, filters. 8. Follow up visit in 8 months or earlier if patient has any problems. 9. Watching and losing weight. Thank you very much for allowing me to participate in the management of your patient. Zoltan Fiore MD, PhD, FAASM. Diplomat of [place] [employer], Sleep Medicine Board by [place] [employer] Conveyor Belt Installer of [facility] [place] Objective - Vital Signs Vital Signs: Vital Signs Temp 98.1 F 09/21/24 16:38 Pulse 74 09/21/24 16:38 Resp 16 09/21/24 16:38 BP 121/75 09/21/24 16:38 Pulse Ox 98 09/21/24 16:38 FiO2 Intake & Output 09/20/24 09/21/24 09/21/24 18:59 06:59 18:59 Weight 103.419 kg Home Medications: Home Medications Medication Instructions Recorded Confirmed Type Atorvastatin [Lipitor] 10 mg PO DAILY 07/14/19 02/07/20 History Docusate [Colace] 100 mg PO DAILY 07/14/19 02/07/20 History Fexofenadine HCl [Tory Allergy] 180 mg PO DAILY 07/14/19 02/07/20 History Gabapentin [Neurontin] 600 mg PO BID 07/14/19 09/21/24 History Glimepiride [Amaryl] 4 mg PO BID 07/14/19 02/07/20 History Glucosam/Anthony-Msm1/C/Pan/Bosw 2 each PO BID 07/14/19 09/21/24 History [Glucosamine-Chondroitin Tablet] Ibuprofen [Motrin] 800 mg PO DIRECTED 07/14/19 09/21/24 History Insulin Glargine (Lantus) [Lantus] 30 unit SQ BID 07/14/19 09/21/24 History Insulin Glargine (Lantus) [Lantus] 40 unit SQ HS 07/14/19 02/07/20 History Levothyroxine Sodium [Levoxyl] 175 mcg PO DAILY 07/14/19 09/21/24 History Montelukast [Singulair] 10 mg PO HS 07/14/19 09/21/24 History lisinopriL [Zestril] 5 mg PO DAILY 07/14/19 09/21/24 History metFORMIN HCL [Glucophage] 1,000 mg PO BID 07/14/19 02/07/20 History traMADol HCL [Ultram] 50 mg PO TID 07/14/19 09/21/24 History Venlafaxine HCl ER [Effexor Xr] 37.5 mg PO HS 09/20/19 02/07/20 History Mv-Min/Vit C/Glut/Lysine/Hc124 2 each PO BID 12/06/19 09/21/24 History [Airborne Tablet Chewable] Albuterol Sulfate [Ventolin HFA] 1 - 2 puff INHALATION Q6H PRN 01/10/20 02/07/20 History Cyclobenzaprine [Flexeril] 10 mg PO BID PRN #60 tab 01/11/20 02/07/20 Rx DULoxetine HCL [Cymbalta] 60 mg PO DAILY 09/21/24 09/21/24 History Dapagliflozin Propanediol [Farxiga] 10 mg PO DAILY 09/21/24 09/21/24 History Pravastatin Sodium [Pravachol] 20 mg PO DAILY 09/21/24 09/21/24 History Progesterone, Micronized 200 mg PO HS 09/21/24 09/21/24 History [Progesterone] Tenapanor HCl [Ibsrela] 50 mg PO DAILY 09/21/24 09/21/24 History methocarbamoL [Robaxin] 500 mg PO TID 09/21/24 09/21/24 History
== END ==
LOC: 3 N SLEEP 15:43
PROVIDERS: ATTEND Internal Medicine
DX: G47.33 Obstructive sleep apnea (adult) (pediatric) (principal); E03.9 Hypothyroidism, unspecified; E66.9 Obesity, unspecified; E78.5 Hyperlipidemia, unspecified; Z68.36 Body mass index [BMI] 36.0-36.9, adult; Z86.39 Personal history of other endocrine, nutritional and metabolic disease; Z88.0 Allergy status to penicillin
CPT/HCPCS: 99212